=== PATIENT | female | born 1960 | race Caucasian/White ===

== ENCOUNTER 2018-06-28 09:57 | Emergency (ER) | payer OTHER ==
[~2018-06-28] VITALS: Ht 170.2 cm; Wt 125.2 kg
[2018-06-28 10:05] VITALS: Ht 170.2 cm; Wt 125.2 kg
[2018-06-28 12:52] VITALS: BP 157/84
== END 2018-06-28 12:54 | disposition home or self-care (01) ==
LOC: ED 09:57
DX: M72.2 Plantar fascial fibromatosis (principal); M77.32 Calcaneal spur, left foot; R03.0 Elevated blood-pressure reading, without diagnosis of hypertension; Z88.0 Allergy status to penicillin; Z88.6 Allergy status to analgesic agent
CPT/HCPCS: Q0092